=== PATIENT | female | born 1965 | race Caucasian/White ===

== ENCOUNTER 2019-01-03 15:19 | Emergency (ER) | payer BC ==
[~2019-01-03] VITALS: Ht 160 cm; Wt 63.5 kg
--- NOTE | 2019-01-03 15:30 | NUR ---
PT CAME INTO THE ED C/O DIZZY x 2 DAYS, +N/V. PT'S AAOX4, VSS, BREATHING EVEN AND UNLABORED, AMBULATORY W/ STEADY GAIT. PT CONNECTED TO THE MONITOR AND POX. WILL CONTINUE TO MONITOR.
--- NOTE | 2019-01-03 15:35 | NUR ---
IV LINE ESTABLISHED. WILL CONTINUE TO MONITOR.
[2019-01-03 15:50] LABS: BASOPHILS % (AUTO) 0.7 % (0.0-2.0); EOSINOPHILS % (AUTO) 0.7 % (0.0-6.0); HEMATOCRIT 41 % (33-45); LYMPHOCYTES # (AUTO) 1.7 /CMM (0.8-4.8); MEAN CORPUSCULAR HGB CONC 34 g/dl (31.0-36.0); MEAN CORPUSCULAR VOLUME 94 fL (82-100); MONOCYTES # (AUTO) 0.4 /CMM (0.1-1.30); MONOCYTES % (AUTO) 6.3 % (2.0-12.0); NEUTROPHILS # (AUTO) 3.5 /CMM (1.8-8.9); NEUTROPHILS % (AUTO) 62.3 % (43.0-81.0); PLATELET COUNT (AUTO) 201 /CMM (150-450); RED BLOOD CELL COUNT(AUTO) 4.41 MIL/uL (4.0-5.2); WHITE BLOOD COUNT (AUTO) 5.6 K/uL (4.3-11.0)
--- NOTE | 2019-01-03 15:50 | NUR ---
PT SENT TO CT.
[2019-01-03 15:57] LABS: CALCIUM, SERUM 9.1 mg/dL (8.5-10.1); CREATININE 0.8 mg/dL (0.6-1.3); POTASSIUM 3.5 mmol/L (3.5-5.1)
--- NOTE | 2019-01-03 16:08 | NUR ---
PT CAME BACK FROM CT. CONNECTED TO BACK TO THE MONITOR.
[2019-01-03] MEDS ORDERED: MECLIZINE HCL 25 MG TABLET ONE (16:23)
[2019-01-03] MEDS ORDERED: MECLIZINE HCL 12.5 MG TABLET PO ONE (16:30)
[2019-01-03 18:05] VITALS: BP 115/81
--- NOTE | 2019-01-03 18:05 | NUR ---
Patient discharged to home in stable condition. Written and verbal after care instructions given. Patient verbalizes understanding of instruction.
== END 2019-01-03 18:05 | disposition home or self-care (01) ==
LOC: ER 15:19
DX: R42 Dizziness and giddiness (principal)
CPT/HCPCS: 36415; 70450; 80048; 85025; 93005; 99284; J8597